=== PATIENT | male | born 1970 | race Caucasian/White ===

== ENCOUNTER 2025-03-02 11:01 | Inpatient (IN) | payer BC ==
[~2025-03-02] VITALS: Ht 180.3 cm; Wt 98.0 kg
[2025-03-02 11:30] LABS: UA COLLECTION TYPE CLN CATCH MIDSTREAM
[2025-03-02 11:37] LABS: FINE GRANULAR CAST 0-3 /LPF (NEGATIVE); MUCUS STRANDS MANY /LPF (Neg); SQUAMOUS EPITHELIAL CELL,UR FEW /LPF (FEW)
[2025-03-02 11:46] LABS: MEAN PLATELET VOLUME 8.1 FL (7.4-10.4); RED CELL DISTRIBUTION WIDTH 14.9 % (11.5-14.5)
[2025-03-02 12:12] LABS: CREATININE 1.01 MG/DL (0.60-1.10); TOTAL CARBON DIOXIDE 30.4 MMOL/L (24-32); eCRCL 87 ML/MIN; eGFR 76 ML/MIN
--- NOTE | 2025-03-02 14:20 | Physician Documentation ---
History of Present Illness Chief Complaint: Abdominal Pain Stated Complaint: ABD PAIN Time Seen by MD: 13:47 OK to notify your PCP?: Yes Source: patient, RN/MD, RN notes reviewed, old records Mode of Arrival: POV Exam Limitations: no limitations HPI This patient is a 54 y/o male who presents to ED with chief complaint of ab dominal pain. Patient reports this pain started yesterday. He has some nausea but denies any assocaited vomiting or diarrhea. Patient states the only stomach problems he has had in the past is some GERD, however he took TUMS earlier which did nothing for his pain. Patient denies any alcohol use. He states his pain is not worse after eating. He denies any new medications, noting he has only taken Depakote for his Bipolar, which he has been taking for the past 20+ years. He also denies any unintentional weight loss, and is not taking GLP-1 drugs for weight loss. Patient does however note that one month ago he completed a 5-day fast of only water and bone broth. Patient denies any other associated symptoms at this time. Patient denies any other alleviating or exacerbating factors. Medication Reconciliation Allergies: Coded Allergies: Penicillins (Unverified Allergy, Mild, childhood rash, 03/02/25) Scheduled Divalproex Sodium DR* (Depakote DR*), 625 MG PO HS, (Reported) Divalproex Sodium DR* (Depakote DR*), 1 TAB PO DAILY, (Reported) Paroxetine Hcl (PAXIL tablet), 1 TAB PO DAILY, (Reported) Past Medical History Past Medical History: GERD, Bipolar Past Surgical History: no surgical history Smoking Status: Never smoker Alcohol Use: None Drug Use: none Review of Systems All Other Systems at this time: Reviewed and Negative Physical Exam Vital Signs: RN Vital Signs have been reviewed: Yes, Temperature: 90.0, Heart Rate: 69, Respiratory Rate: 16, BP: 165/103, Pulse Oximetry: 99, Weight: 98.000 Oxygen Flow Rate: 0 Physical Exam General: The patient is well developed, well nourished, nontoxic appearing and is in no acute distress. Skin: [place], warm and dry with no rashes. HEENT: Head was normocephalic and atraumatic. Eyes - Scleral Icterus. Otherwise pupils equal, round, reactive to light and accommodation. Extraocular movements were intact. Conjunctivae were nonicteric. The mouth and oropharynx were clear with moist mucous membranes. There were no pharyngeal exudates or erythema. Neck: Supple and nontender. There was no jugular venous distention, lymphadenopathy, thyromegaly or masses. Chest: Clear to auscultation bilaterally without wheezes, rales or rhonchi. No accessory muscle use. No dullness to percussion. Heart: Rate regular and rhythmic. S1, S2. No murmurs. Palpation of the chest wall was normal. No rubs or thrills. Abdomen: Diffuse tenderness throughout and over epigastric area. Abdomen otherwise soft and nondistended. Positive bowel sounds. No guarding or rebound. No hepatosplenomegaly or palpable masses. Extremities: No cyanosis, clubbing or edema. The patient moves all extremities. Pulses were equal and symmetric. Neurologic: Cranial nerves II-XII were intact. Sensation was intact to light touch throughout. Motor strength was 5/5 in all four extremities. Deep tendon reflexes were intact in both upper and lower extremities. Psychologic: The patient was oriented to person, place and time. The patient demonstrated appropriate judgement and insight. Progress Progress Note 1607: Case discussed with on-call surgeon, Dr. Bojorquez, who states patient possibly just passed stone. Will do cholesystectomy in 1-2 days. Orders to give fluids and pain control. 1626: Paged hospitalist 1656: Case discussed with hospitalist who agrees to come down and see the patient. Results/Orders Reviewed/noted all lab results: Yes Results/Orders Orders - DANIA RODAS MD Cult Urine + [place] Ct (03/02/25 11:38) Ultrasound Of Abdomen (03/02/25 13:58) Ct Abdomen Pelvis (03/02/25 14:00) CK (03/02/25 14:18) Valproate (03/02/25 14:19) Completed Orders - DANIA RODAS MD Cbc/Diff (03/02/25 11:07) BMP (03/02/25 11:07) Lipase (03/02/25 11:07) CMP (03/02/25 11:07) Ua W/Microscopic, Cult If Ind (03/02/25 11:08) Vital Signs 03/02/25 03/02/25 03/02/25 03/02/25 11:03 12:37 12:48 14:13 Temp 90.0 90.0 90.0 Pulse 94 65 69 Resp 16 18 16 16 B/P (MAP) 152/75 173/95 (121) 165/103 (123) Pulse Ox 98 100 99 O2 Flow Rate 0 0 0 Laboratory Tests Test 03/02/25 11:08 03/02/25 11:20 Urine Specimen Description Cln catch midstream Urine Color [place] Urine Clarity Slightly cloudy Urine pH Urine Specific [place] Urine Protein Urine Glucose (UA) Urine Ketones Urine Occult Blood Urine Nitrite Urine Bilirubin Urine Urobilinogen Urine Leukocyte Esterase Urine RBC 0-2 Urine WBC 5-10 H Urine Squamous Epithelial Cells Few Urine Bacteria Few Urine Hyaline Casts 10-30 Urine Fine Granular Casts 0-3 Urine Mucus Many Urine Culture Indicated Indicated Volume Urine Centrifuged 10 ml Urine Comment See note White Blood Count 10.9 Red Blood Count 5.64 Hemoglobin 16.3 Hematocrit 47.9 Mean Corpuscular Volume 85.0 Mean Corpuscular Hemoglobin 29.0 Mean Corpuscular Hemoglobin Concent 34.1 Red Cell Distribution Width 14.9 H Platelet Count 268 Mean Platelet Volume 8.1 Neutrophils (%) (Auto) 89.0 H Lymphocytes (%) (Auto) 5.4 L Monocytes (%) (Auto) 5.4 Eosinophils (%) (Auto) 0 Basophils (%) (Auto) 0.2 Neutrophils # (Auto) 9.7 H Lymphocytes # (Auto) 0.6 L Monocytes # (Auto) 0.6 Eosinophils # (Auto) 0.0 Basophils # (Auto) 0.0 CBC Comment Sodium Level 136 Potassium Level 4.5 Chloride Level 97 L Carbon Dioxide Level 30.4 Anion Gap 9 Blood Urea Nitrogen 15 Creatinine 1.01 Estimated GFR/1.73 m2 76 BUN/Creatinine Ratio 14.9 Glucose Level 150 H Calcium Level 8.7 Total Bilirubin 2.3 H Aspartate Amino Transf (AST/SGOT) 602 H Alanine Aminotransferase (ALT/SGPT) 1377 H Alkaline Phosphatase 128 H Total Protein 8.0 Albumin 3.9 Globulin 4.1 Albumin/Globulin Ratio 1.0 L Lipase > 375 H Chemistry Comments Microbiology Date/Time Source Procedure Growth Status 03/02/25 11:38 Urine Clean Catch Midstream Urine Culture - Preliminary Culture received. Resulted Re-Evaluation Re-Evaluation : Re-Evaluation: Improved Progress Patient was seen and examined. Patient was given reassurance. The patient was complaining of severe abdominal pain. The patient received some laboratory work. Patient's CBC was reassuring however chemistry is concerning for acute pancreatitis with lipase greater than 375 also alk-phos elevated at 128 ALT 1377 AST 600 and bilirubin 2.3. Chemistries were within normal limits otherwise. Patient's valproic acid was 65. Concern for liver injury is gallstone pancreatitis versus liver failure versus Depakote hepatoxicity. Patient received antibiotics. In addition to fluids and morphine for pain patient received cefepime 1 g for possible infection. Patient looks well but is complaining of pain at this time. is at bedside. Continuous classroom monitor interpretation shows normal sinus rhythm heart rate 90s, no ectopy, normal, my interpretation. Pulse oximetry monitor interpretation shows normal oxygenation at 98% room air, normal, my interpretation. EKG/XRAY/CT/US/VASC/MRI Ultrasound : Interpreted By: radiologist Ultrasound of: abdomen [address] [address] ULTRASOUND Patient: DARCY SORENSEN I Medical Record: [id number] [facility] : 1970, Age: 54 Sex: Male Location: ER Patient Status: [facility] ER Service Date/Time: 03/02/251357 Ordering Physician: DANIA RODAS MD Exam: ULTRASOUND OF ABDOMEN INDICATION: RUQ TECHNIQUE: Multiple real-time sonographic images were obtained of the right upper quadrant. COMPARISON: None FINDINGS: The liver demonstrates heterogeneous nodular echotexture without focal mass lesions. The liver measures 14.6 cm. Trace ascites. There is no intrahepatic or extrahepatic ductal dilatation. The common duct measures 0.2 cm. Cholelithiasis. The gallbladder wall measures 0.2 cm and is within normal limits. The right kidney measures 11.3 cm. The right kidney is normal in contour, size, and shape. The echogenicity is normal. There is no hydronephrosis. The pancreas is not well visualized due to overlying bowel gas. IMPRESSION: Possible changes of hepatic cirrhosis. Cholelithiasis. Trace ascites. Electronically Signed by:GIL MAGAÑA MD Date & Time: 03/02/251458 Dictated by: GIL MAGAÑA MD Dictation date and time: 03/02/251458 Primary Care Provider: NO PRIMARY CARE PROVIDER cc: DANIA RODAS MD ~ EDMD DR. RODAS REVIEWED IMAGES AND AGREES WITH ABOVE FINDINGS Medical Decision Making Additional information obtaine: old records Findings Infectious versus hepatotoxic, versus gallstone pancreatitis. Differential Dx:Considerations: Bowel obstruction, Cholangitis, Cholelithasis, Constipation, Diverticular disease, Esophagitis, Gastritis/PUD, Gastroenteritis, GI hemorrhage, Hernia, Hepatitis, Inflammatory BD, Ischemic bowel, Pancreatitis, Urolithiasis, N/A Departure Time of Disposition: 16:26 Disposition: ADMITTED INPATIENT Admitted to Inpatient Unit: yes, to hospitalist, to surgeon Admission Level of Care: Med/Surg with Tele Impression: Primary Impression: Gallstone pancreatitis Additional Impression: Abdominal pain Qualified Codes: R10.84 - Generalized abdominal pain Condition: Guarded Referrals: NO PRIMARY CARE PROVIDER (PCP) Education Educated: Patient, Family Educated regarding: diagnosis, treatment, need for follow up, other Signature Scribe Signature: Scribed for Dania Rodas MD by Ann-Marie Ferrell. 03/02/25 14:22 Attestation: The note accurately reflects work and decisions made by me.Dania Rodas MD 03/02/25 14:20 DANIA RODAS MD Mar 02, 2025 14:20
[2025-03-02 14:25] LABS: OCCULT BLOOD,URINE TRACE-INTACT (Neg)
[2025-03-02 14:26] LABS: LEUKOCYTE ESTERASE ,URINE NEGATIVE (Neg); NITRITES, URINE POSITIVE (Neg)
[2025-03-02] MEDS ORDERED: iohexol 300mg/ml 100ml inj. ONE (14:50)
--- NOTE | 2025-03-02 15:01 | RADIOLOGY REPORT ---
INDICATION: RUQ TECHNIQUE: Multiple real-time sonographic images were obtained of the right upper quadrant. COMPARISON: None FINDINGS: The liver demonstrates heterogeneous nodular echotexture without focal mass lesions. The liver measures 14.6 cm. Trace ascites. There is no intrahepatic or extrahepatic ductal dilatation. The common duct measures 0.2 cm. Cholelithiasis. The gallbladder wall measures 0.2 cm and is within normal limits. The right kidney measures 11.3 cm. The right kidney is normal in contour, size, and shape. The echogenicity is normal. There is no hydronephrosis. The pancreas is not well visualized due to overlying bowel gas. IMPRESSION: Possible changes of hepatic cirrhosis. Cholelithiasis. Trace ascites.
[2025-03-02 15:12] LABS: VALPROATE 65 UG/ML (50-100)
--- NOTE | 2025-03-02 16:41 | CONSULTATION REPORT ---
History of Present Illness Providers to CC CC: LIGIA CORREIA MD ~ Reason for Admit\Admit Dx: Gallstone pancreatitis History of Present Illness Patient admitted with gallstone pancreatitis Either needs laboratory studies trending down showing likely passage of transient choledocholithiasis or MRCP He will need interval cholecystectomy in the near future I will continue to follow Allergies: Coded Allergies: Penicillins (Unverified Allergy, Mild, childhood rash, 03/02/25) Physical Exam Last Vital Signs Recorded: Temperature: 90.0, Heart Rate: 81, Respiratory Rate: 18, BP: 161/96, Pulse Oximetry: 99, Weight: 98.000 Results Diagram Lab Result Diagram: 03/02/25 1120 03/02/25 1120 LIGIA CORREIA MD Mar 02, 2025 16:41
[2025-03-02] MEDS: cefepime 1GM in D5W 50mL 50 ML IV ONE (16:55)
[2025-03-02] MEDS ORDERED: DIVA125T31 PO (18:18)
[2025-03-02] MEDS ORDERED: PARO10TA4 PO (18:18)
[2025-03-02] MEDS ORDERED: DIVA-134 PO (18:18)
[2025-03-02] MEDS ORDERED: magnesium sulf-water 2g/50mL 50 ML IV PRN (18:20)
[2025-03-02] MEDS ORDERED: ondansetron/PF 4mg/2ml inj IV PRN (18:20)
[2025-03-02] MEDS ORDERED: mag hydrox/Alum hydrox/simeth 30ml oral suspension PO PRN (18:20)
[2025-03-02] MEDS ORDERED: potassium Cl 20 mEq SR tablet PO PRN ×2 (18:20)
[2025-03-02] MEDS ORDERED: potassium Cl 40MEQ/1/2NS 520ml 520 ML IV PRN (18:20)
[2025-03-02] MEDS ORDERED: magnesium sulf-water 4G/100mL 100 ML IV PRN (18:20)
[2025-03-02] MEDS ORDERED: magnesium hydroxide 30ml (MOM) UD suspension PO PRN (18:20)
[2025-03-02] MEDS ORDERED: hydrALAZINE 20mg/ml inj. IV PRN (18:40)
[2025-03-02] MEDS: normal saline 1000ml 1,000 ML IV SCH (18:42)
--- NOTE | 2025-03-02 18:45 | HISTORY AND PHYSICAL ---
History & Physical Providers to CC ~ History of Present Illness Reason for Admit\Complaint: Gallstone pancreatitis\abdominal pain History of Present Illness This is a 54-year-old male who presents to the ED with chief complaint of upper middle abdominal discomfort x1 day. The patient woke up and a at 10:30 a.m. noticed significant epigastric and upper abdominal pain he also had some nausea however denies any emesis or diarrhea. The patient does have history of dyspepsia intermittently. The patient does not informed me that he also had some chills and was diaphoretic. The patient has been on Depakote for bipolar disorder for 20 years that has had periodic lab work without any changes in his liver function or concerns by his provider. The patient did have bone broth and water this morning has not eating a solid foods. The patient informs me that in early January he had a five day fast of only water and bone broth. Allergies: Coded Allergies: Penicillins (Unverified Allergy, Mild, childhood rash, 03/02/25) Home Medications Home Medications Active Reported PAXIL tablet (Paroxetine Hcl) 10 Mg Tablet 1 Tab PO DAILY [address]* (Divalproex Sodium) 500 Mg Tablet.dr 1 Tab PO DAILY Depakote DR* (Divalproex Sodium) 125 Mg Tablet.dr 625 Mg PO HS Past Medical History Past Medical History Bipolar disorder, dyspepsia Past Surgical History Surgical History Comment Tonsillectomy, elbow surgery Family History Family History: FH: Alzheimers disease MOTHER FH: aortic aneurysm Maternal grandmother FH: hypertension FATHER FH: myocardial infarction Maternal grandfather Gout Paternal grandfather Past Social History Social History Comment Nonsmoker, rare alcohol use, denies any illicit drug use. Full code status. ROS ROS Except for positives in the HPI the rest of the 14 point review systems is negative Exam Vitals: Vital Signs Date Time Temp Pulse Resp B/P (MAP) Pulse Ox O2 Delivery O2 Flow Rate FiO2 03/02/25 18:07 98.3 77 18 173/108 (129) 99 0 General: Gen. No acute distress alert and oriented 4 Lungs clear to ascultation bilaterally, no wheezes rales or rhonchi appreciated Heart normal sinus rhythm no murmurs rubs or clicks noted Abdomen soft epigastric and right upper quadrant tenderness, positive Gates's sign. bowel sounds are normoactive Lower extremities no clubbing cyanosis, nor edema appreciated bilaterally Diagnostic Data Last Recorded Lab Results: 03/02/25 1120 03/02/25 1120 Advance Care Planning Advanced Care plannin - 30 Minutes Problems: (1) Gallstone pancreatitis Status: Acute Additional Plan # gallstone pancreatitis Clear liquid diet Nick Bojorquez MD general surgeon is consulted IV morphine for pain Daily lipase # transaminitis with hyperbilirubinemia MRCP is ordered. # bipolar disorder Well controlled with Depakote With the patient's transaminitis Depakote is held for now Continue Paxil # DVT prophylaxis SCDs I spent a total of 16 minutes on reviewing various resuscitative measures/ ACP with the patient at the time of admission. The patient has decided on full code status Date of Service: Mar 02, 2025 Billing Provider: VIDAL MORRIS DO Common Visit Codes: 54960-[id number] INP/OBS CARE (HIGH) Secondary Visit Codes: 74064-[id number] CARE PLAN 30 MINUTES VIDAL MORRIS DO Mar 02, 2025 18:45
[2025-03-02] MEDS: K and/or MAG REPLACEMENT MC SCH (20:00)
[2025-03-02] MEDS: docusate sod 100mg capsule PO SCH (20:00)
[2025-03-03 02:11] LABS: MEAN PLATELET VOLUME 7.6 FL (7.4-10.4); RED CELL DISTRIBUTION WIDTH 15.0 % (11.5-14.5)
[2025-03-03 02:33] LABS: CREATININE 0.98 MG/DL (0.60-1.10); TOTAL CARBON DIOXIDE 31.8 MMOL/L (24-32); eCRCL 90 ML/MIN; eGFR 79 ML/MIN
[2025-03-03 07:35] VITALS: BP 161/87; PULSE 74; RESP 16; TEMP 99; O2SAT 96
--- NOTE | 2025-03-03 08:38 | RADIOLOGY REPORT ---
EXAM: CT CT ABDOMEN PELVIS W/ IV CONTRAST HISTORY: ABD PAIN TECHNIQUE: Volumetric multidetector CT images of the abdomen and pelvis were obtained after the administration of intravenous contrast. All CT scans at this facility use dose modulation, iterative reconstruction, and/or weight based dosing when appropriate to reduce radiation dose to as low as reasonably achievable. COMPARISON: US ULTRASOUND OF ABDOMEN on DOS: 03/02/25 FINDINGS: [LOWER CHEST]: The partially visualized lung bases are clear without a pleural effusion. [LIVER]: Normal hepatic size without suspicious focal lesion. [GALLBLADDER AND BILIARY TREE]: Cholelithiasis measuring 1.4 cm width trace pericholecystic edema. Trace possible enhancement along the margins of the common bile duct without significant distention correlate with laboratory values [SPLEEN]: Unremarkable. [PANCREAS]: Surrounding edema along the margins of the pancreas primarily of the of the pancreatic body to pancreatic head. Imaging findings compatible with interstitial edematous pancreatitis. [ADRENAL GLANDS]: Unremarkable [KIDNEYS]: No hydronephrosis. No nephroureterolithiasis. No suspicious focal lesion. [BLADDER]: To [REPRODUCTIVE ORGANS]: Unremarkable. [BOWEL/MESENTERY]: Stomach is normal. Concomitant 1st segment segment duodenitis. Mild stool burden within the ascending colon. Minimal scattered diverticula. [ASCITES]: Small volume ascites [LYMPHADENOPATHY]: No pathologically enlarged lymph nodes by CT size criteria [VASCULATURE]: No aneurysmal dilatation. [ABDOMINAL WALL]: Unremarkable. [MUSCULOSKELETAL]: No acute fracture or aggressive focal osseous lesion. IMPRESSION: 1. Interstitial edematous pancreatitis. 2. Cholelithiasis with trace pericholecystic edema. 3. Trace possible enhancement along the margins of the common bile duct without significant distention correlate with laboratory values. LER SONIDO
[2025-03-03 10:13] VITALS: BP 150/87; PULSE 70; RESP 18; TEMP 98.4; O2SAT 94
[2025-03-03 18:00] VITALS: BP 168/95; PULSE 66; RESP 15; TEMP 98.5; O2SAT 98
--- NOTE | 2025-03-03 18:48 | PROGRESS NOTE ---
Daily Progress Note Providers to CC ~ Antibiotic Timeout Antibiotic Ordered?: No Subjective The patient informed Dr. Bojorquez that he does not want a cholecystectomy however is awaiting an MRCP- his lipase remains greater than 375 however currently the patient appears asymptomatic in his abdominal exam is unremarkable today Objective Vital Signs Date Time Temp Pulse Resp B/P (MAP) Pulse Ox O2 Delivery O2 Flow Rate FiO2 03/03/25 10:13 98.4 70 18 150/87 (108) 94 Room Air 03/02/25 21:45 0 Result Diagram: 03/03/25 0146 03/03/25 0146 Gen. No acute distress alert and oriented 4 Lungs clear to ascultation bilaterally, no wheezes rales or rhonchi appreciated Heart normal sinus rhythm no murmurs rubs or clicks noted Abdomen soft nontender bowel sounds are normoactive Lower extremities no clubbing cyanosis, nor edema appreciated bilaterally Problem\Assessment\Plan Problems/Diagnosis: (1) Gallstone pancreatitis # gallstone pancreatitis Clear liquid diet Nick Bojorquez MD general surgeon evaluated the patient and the patient declined a cholecystectomy on 03/03/2025 IV morphine for pain Daily lipase # transaminitis with hyperbilirubinemia MRCP is ordered. With transaminitis and bilirubin downtrending the likelihood of a choledocholithiasis is low # bipolar disorder Well controlled with Depakote With the patient's transaminitis Depakote is held for now Continue Paxil # DVT prophylaxis SCDs Disposition: Discharge home once pancreatitis is nearly resolved. Date of Service: Mar 03, 2025 Billing Provider: VIDAL MORRIS DO Common Visit Codes: [id number] INP/OBS CARE(HIGH) VIDAL MORRIS DO Mar 03, 2025 18:48
[2025-03-03] MEDS: diazepam inj 5 MG/ML inj. IV ONE (19:00)
--- NOTE | 2025-03-03 19:48 | PROGRESS NOTE ---
Progress Note Dictate Providers to CC CC: LIGIA CORREIA MD ~ Progress Note: Patient was suspected gallstone pancreatitis Known gallstones Symptomatically much improved Laboratory studies trending towards normal I have recommended cancelling MRCP and proceeding with interval cholecystectomy Patient is not agreeable to this and would like to proceed with MRCP and decide as an outpatient on how to proceed I discussed with him the accepted risks of avoiding interval cholecystectomy following an episode of presumed choledocholithiasis with gallstone pancreatitis. Those risks are thought to be approximately 25% at 30 days and 30% at 60 days risk for recurrent choledocholithiasis with a lifetime risk nearing 50%. Patient verbalized understanding and would like to seek a 2nd opinion as an outpatient or try other methods on his own. Patient will remain as an inpatient due to ongoing treatment for his pancreatitis symptoms which include persistent epigastric pain, however, this has improved. We will await the results of the MRCP, however, it is unlikely that this will change any of the management strategies or recommendations Should the patient change his mind and wished to proceed with interval cholecystectomy, I will be happy to add him onto the schedule tomorrow. If not, he can certainly follow up with me as an outpatient or call my office should he change his mind regarding these recommendations. Antibiotic Ordered?: N/A Objective Vitals Vital Signs Date Time Temp Pulse Resp B/P (MAP) Pulse Ox O2 Delivery O2 Flow Rate FiO2 03/03/25 10:13 98.4 70 18 150/87 (108) 94 Room Air 03/02/25 21:45 0 Lab Results: 03/03/25 0146 03/03/25 0146 LIGIA CORREIA MD Mar 03, 2025 19:48
[2025-03-03 22:00] VITALS: BP 160/85; PULSE 73; RESP 16; TEMP 99.6; O2SAT 96
[2025-03-04 06:00] VITALS: BP 152/82; PULSE 70; RESP 18; TEMP 98.8; O2SAT 95
[2025-03-04] MEDS: ringers solution, lacted 1,000 ML IV ONE ×2 (06:50→07:50)
[2025-03-04] MEDS ORDERED: hydrALAZINE 20mg/ml inj. IV PRN (06:55)
[2025-03-04 09:01] LABS: MEAN PLATELET VOLUME 7.7 FL (7.4-10.4); RED CELL DISTRIBUTION WIDTH 14.7 % (11.5-14.5)
[2025-03-04 09:12] LABS: INR 1.0 INR
[2025-03-04 09:24] LABS: CHOL/HDL RATIO 4.2 (0.00-4.99); CREATININE 0.89 MG/DL (0.60-1.10); LDL CHOLESTEROL 97 MG/DL (50-100); TOTAL CARBON DIOXIDE 30.0 MMOL/L (24-32); eCRCL 99 ML/MIN; eGFR 88 ML/MIN
[2025-03-04 09:36] LABS: LACTATE DEHYDROGENASE 198.0 U/L (85-227)
--- NOTE | 2025-03-04 14:39 | PROGRESS NOTE ---
Daily Progress Note Providers to CC ~ Antibiotic Timeout Antibiotic Ordered?: Yes Subjective No acute events overnight. Patient examined at bedside. No new complaints, not in acute distress. Patient denies chest pain, sob, palpitations, n/v/d. Patient reports resolving abdominal pain. Low-grade fever last night, labs notable for resolving transaminitis and normalized t.bili. Prelim blood cx negative. Objective Vital Signs Date Time Temp Pulse Resp B/P (MAP) Pulse Ox O2 Delivery O2 Flow Rate FiO2 03/04/25 06:00 98.8 70 18 152/82 (105) 95 Room Air 03/02/25 21:45 0 Result Diagram: 03/04/2581803/04/25818 Physical Exam General: A&Ox 3, NAD HEENT: Normocephalic, PERRLA Neck: Supple, trachea midline, no JVD Chest: Clear to auscultation bilaterally Cardiovascular: RRR, S1&S2 GI: Soft and nontender Extremities: No cyanosis/clubbing/or edema DATA WAREHOUSING MANAGER: CN II-XII intact, no focal deficits Musculoskeletal: No paraspinal muscle tenderness, no muscle spasm Skin: Warm and intact Coagulation Studies Laboratory Tests Test 03/04/25 08:19 Prothrombin Time 10.7 SECONDS (9.0-12.0) INR International Normalized Ratio 1.0 INR Coagulation Comments Problem\Assessment\Plan Problems/Diagnosis: (1) Gallstone pancreatitis Assessment & Plan Acute pancreatitis likely 2/2 choledocholithiasis -Nick Bojorquez MD general surgeon evaluated the patient and the patient declined a cholecystectomy on 03/03/2025; surgeon recommended interval cholecystectomy instead of MRCP which patient is not agreeable with -MRCP refused by pt, patient refuses most recommendation at this time 03/04: Low-grade fever last night, resolving transaminitis and normalized t.bili; continue supportive care, empirical abx refused by pt, prelim blood cx neg; trend CRP Bipolar disorder Well controlled with Depakote With the patient's transaminitis Depakote is held for now Continue Paxil DVT prophylaxis: SCDs Date of Service: Mar 04, 2025 Billing Provider: CATRACHO BERNARDO Common Visit Codes: [id number] INP/OBS CARE(HIGH) CATRACHO BERNARDOP Mar 04, 2025 14:39
[2025-03-04 18:00] VITALS: BP 123/93; PULSE 66; RESP 18; TEMP 99.3; O2SAT 98
[2025-03-04] MEDS: diazepam inj 5 MG/ML inj. IV PRN (19:10)
--- NOTE | 2025-03-04 20:38 | RADIOLOGY REPORT ---
CLINICAL HISTORY: evaluate for cholelithiasis TECHNIQUE: MRI and MRCP of the abdomen was performed without gadolinium. 3D reconstructed images were created under concurrent radiologist supervision and archived on the PACS system. COMPARISON: CT CT ABDOMEN PELVIS W/ IV CONTRAST on DOS: 03/02/25 FINDINGS: The adrenal glands, liver, kidneys, and spleen are unremarkable. The gallbladder is packed with stones. There is pancreatic parenchymal edema with mild peripancreatic inflammation and fluid, compatible with acute pancreatitis. The common duct is normal in caliber, measuring 3 mm. No intraductal filling defects to suggest a stone is seen. The abdominal aorta is normal course and caliber. No enlarged lymph node is seen. There is trace ascites. IMPRESSION: Acute pancreatitis. Cholelithiasis. Normal caliber CBD. No intraductal filling defect to suggest a stone.
[2025-03-04] MEDS: metroNIDAZOLE-Flagyl 500mg/NS 100 ML IV SCH (21:00)
[2025-03-04] MEDS: cefepime 1GM in D5W 50mL 50 ML IV SCH (21:00)
[2025-03-04 22:00] VITALS: BP 153/88; PULSE 66; RESP 16; TEMP 98.6; O2SAT 98
[2025-03-05 04:56] LABS: MEAN PLATELET VOLUME 7.7 FL (7.4-10.4); RED CELL DISTRIBUTION WIDTH 14.6 % (11.5-14.5)
[2025-03-05 05:15] LABS: CREATININE 0.81 MG/DL (0.60-1.10); TOTAL CARBON DIOXIDE 30.8 MMOL/L (24-32); eCRCL 108 ML/MIN; eGFR > 90 ML/MIN
[2025-03-05 07:02] VITALS: BP 150/83; PULSE 59; RESP 18; TEMP 98.5; O2SAT 97
[2025-03-05 07:55] VITALS: RESP 18; O2SAT 97
--- NOTE | 2025-03-05 10:56 | DISCHARGE SUMMARY ---
Discharge Summary Providers to CC ~ Discharge Summary Admission Diagnosis: GALLSTONE PANCREATITIS Hospital Course DATE OF ADMISSION: 03/02/25 DATE OF DISCHARGE: 03/05/25 Discharge Diagnosis\\Comment: Acute pancreatitis likely 2/2 choledocholithiasis Choledocholithiasis Bipolar disorder Operations\\Procedures: None Consultants: Surgeon Nick Muñoz Complications: None Condition on DC: Stable Continued Medications: Divalproex Sodium DR* (Depakote DR*) 125 Mg Tablet.dr 125 MG PO HS, TAB.SR takes 125 mg at hs Divalproex Sodium DR* (Depakote DR*) 500 Mg Tablet.dr 1 TAB PO BID, TAB Paroxetine Hcl (PAXIL tablet) 10 Mg Tablet 1 TAB PO DAILY for 30 Days, #30 TAB 0 Refills Discharge Summary: History of Present Illness From H&P: "This is a 54-year-old male who presents to the ED with chief complaint of upper middle abdominal discomfort x1 day. The patient woke up and a at 10:30 a.m. noticed significant epigastric and upper abdominal pain he also had some nausea however denies any emesis or diarrhea. The patient does have history of dyspepsia intermittently. The patient does not informed me that he also had some chills and was diaphoretic. The patient has been on Depakote for bipolar disorder for 20 years that has had periodic lab work without any changes in his liver function or concerns by his provider. The patient did have bone broth and water this morning has not eating a solid foods. The patient informs me that in early January he had a five day fast of only water and bone broth." Hospital Course Diagnostic findings were notable for elevated lipase >3xUNL, significant transaminitis with elevated t.bili, ultrasound of abdomen revealing cholelithiasis with normal gallbladder wall, no intrahepatic or extrahepatic ductal dilation, CT abdomen/pelvis revealing, pancreatitis and cholelithiasis common bile duct enhancement without significant distention. Pertinent negative findings were negative procal, unremarkable serum calcium and triglycerides, rare alcohol intake with no reported recent alcohol intake. Patient was started on intravenous fluids and empirical antibiotics. Case was consulted with surgeon Dr. Bojorquez with recommendation for cholecystectomy which patient refused during this hospital stay. However, patient was agreeable to follow-up outpatient for consideration of cholecystectomy in the future. Subsequent labs including resolving transaminitis along with normalized t.bili and MRCP rendered index of suspicion for likely passed gallstones. Patient did not experience further complications throughout the entire hospital stay and remained clinically and hemodynamically stable. Patient tolerated diet well and no longer reports abdominal pain. Patient was seen and examined on the day of discharge. On day of discharge, vss and labs notable for downtrending CRP, normalized t.bili, resolving transaminitis. Preliminary blood cultures remain negative until the day of discharge. All labs, diagnostic workups, discharge plan discussed with patient in details during visit before discharge. All questions and concerns answered to the best of my professional knowledge. Patient is to follow-up with PCP and Dr. Bojorquez within 2 weeks. Physical Exam General: A&Ox 3, NAD HEENT: Normocephalic, PERRLA Neck: Supple, trachea midline, no JVD Chest: Clear to auscultation bilaterally Cardiovascular: RRR, S1&S2 GI: Soft and nontender Extremities: No cyanosis/clubbing/or edema SEGREGATOR: CN II-XII intact, no focal deficits Musculoskeletal: No paraspinal muscle tenderness, no muscle spasm Skin: Warm and intact *Problems/Diagnosis: (1) Gallstone pancreatitis Status: Acute Total Time Spent on D/C: > 30 Minutes Date of Service: Mar 05, 2025 Billing Provider: CATRACHO BERNARDO Common Visit Codes: 35947-BDB/OBS DISCH DAY >30min CATRACHO BERNARDO Mar 05, 2025 10:54
== END 2025-03-05 14:00 | disposition home or self-care (01) | DRG 440 ==
LOC: ER 11:03 → ED HOLD 18:23 → SUR 3N 03-03 07:08
PROVIDERS: ADMIT Family Medicine; ATTEND Family Medicine
PROC: BW211ZZ Computerized Tomography (CT Scan) of Abdomen and Pelvis using Low Osmolar Contrast (ICD-10-PCS; principal; 2025-03-02)
DX: K85.10 Biliary acute pancreatitis without necrosis or infection (principal); F31.9 Bipolar disorder, unspecified; K80.70 Calculus of gallbladder and bile duct without cholecystitis without obstruction; K21.9 Gastro-esophageal reflux disease without esophagitis; E80.6 Other disorders of bilirubin metabolism; R74.01 Elevation of levels of liver transaminase levels; Z79.899 Other long term (current) drug therapy; Z88.0 Allergy status to penicillin
CPT/HCPCS: 36415; 74177; 74181; 76700; 80053; 80061; 80164; 81001; 82550; 83615; 83690; 83735; 84145; 85025; 85610; 86140; 87040; 87081; 87088; 96365; 96375; 99285; G0378; J0692; J2270; J3360; J7030; Q9967